=== PATIENT | male | born 1970 | race Caucasian/White ===

== ENCOUNTER 2019-04-16 23:16 | Emergency (ER) | payer BC, OTHER ==
[~2019-04-16] VITALS: Ht 180.3 cm; Wt 77.1 kg
[2019-04-17] MEDS ORDERED: ULTRAM 50MG TAB50 MG PO (01:38)
[2019-04-17] MEDS ORDERED: NAPROSYN500 MG PO (01:38)
[2019-04-17 01:46] VITALS: BP 121/93
== END 2019-04-17 01:50 | disposition home or self-care (01) ==
LOC: ER 23:16
DX: S80.12XA Contusion of left lower leg, initial encounter (principal); W22.8XXA Striking against or struck by other objects, initial encounter; Y92.89 Other specified places as the place of occurrence of the external cause; Y99.0 Civilian activity done for income or pay